=== PATIENT | female | born 1990 | race Two or more races ===

== ENCOUNTER 2020-09-14 12:15 | Inpatient (IN) | payer OTHER ==
[~2020-09-14] VITALS: Ht 162.6 cm; Wt 93.4 kg
[2020-10-05] MEDS ORDERED: FOLIC ACID20 MG PO (23:50)
== END 2020-10-08 13:04 | disposition home or self-care (01) | DRG 807 ==
LOC: LDR 10-04 12:15 → OB/GYN 10-05 23:44
PROVIDERS: ADMIT Obstetrics & Gynecology Maternal & Fetal Medicine; ATTEND Obstetrics & Gynecology Maternal & Fetal Medicine
PROC: 4A1HXFZ Monitoring of Products of Conception, Cardiac Rhythm, External Approach (ICD-10-PCS; 2020-10-05)
PROC: 10E0XZZ Delivery of Products of Conception, External Approach (ICD-10-PCS; principal; 2020-10-06)
PROC: 0KQM0ZZ Repair Perineum Muscle, Open Approach (ICD-10-PCS; 2020-10-06)
PROC: 0W8NXZZ Division of Female Perineum, External Approach (ICD-10-PCS; 2020-10-06)
PROC: 10907ZC Drainage of Amniotic Fluid, Therapeutic from Products of Conception, Via Natural or Artificial Opening (ICD-10-PCS; 2020-10-06)
DX: O48.0 Post-term pregnancy (principal); O70.1 Second degree perineal laceration during delivery; Z37.0 Single live birth; Z3A.40 40 weeks gestation of pregnancy

== ENCOUNTER 2020-09-28 09:37 | Outpatient (CLI) | payer OTHER | END 2020-09-28 10:13 | disposition home or self-care (01) | LOC: NST 09:37 | PROVIDERS: ATTEND Obstetrics & Gynecology | DX: Z34.83 Encounter for supervision of other normal pregnancy, third trimester (principal) ==

== ENCOUNTER 2020-10-02 10:33 | Outpatient (CLI) | payer OTHER | END 2020-10-02 11:09 | disposition home or self-care (01) | LOC: NST 10:33 | PROVIDERS: ATTEND Obstetrics & Gynecology Maternal & Fetal Medicine | DX: Z34.83 Encounter for supervision of other normal pregnancy, third trimester (principal) ==

== ENCOUNTER 2020-10-05 11:06 | Outpatient (CLI) | payer OTHER ==
[2020-10-05] MEDS ORDERED: FOLIC ACID20 MG PO (23:50)
== END 2020-10-05 11:44 | disposition home or self-care (01) ==
LOC: NST 11:06
PROVIDERS: ATTEND Obstetrics & Gynecology Maternal & Fetal Medicine
DX: Z34.83 Encounter for supervision of other normal pregnancy, third trimester (principal)

== ENCOUNTER 2025-01-30 13:45 | Inpatient (IN) | payer OTHER ==
[~2025-01-30] VITALS: Ht 160 cm; Wt 89.4 kg
[~2025-01-30 13:45] MED LIST: FOLIC ACID20 MG PO
[2025-02-08 23:37] VITALS: BP 125/73
[2025-02-08] MEDS ORDERED: RINGERS SOLUTION,LACTATED 1,000 ML IV SCH (23:45)
[2025-02-08] MEDS ORDERED: IRON236 MG PO (23:56)
[2025-02-09 00:32] LABS: BASO % 0.4 % (0.1-1.2); EOS # 0.12 (0.04-0.54); EOS % 1.1 % (0.7-7.0); LYMPH # 1.58 (1.18-3.74); LYMPH % 14.1 % (19.3-53.1); MEAN PLATELET VOLUME 10.90 fl (9.4-12.4); MONO # 0.72 (0.24-0.82); MONO % 6.4 % (4.7-12.5); NEUT # 8.66 (1.56-6.13); NEUT % 77.6 % (34.0-71.1); RED CELL DISTRIBUTION WIDTH 14.6 % (11.6-14.4)
[2025-02-09 00:40] LABS: INR < 0.93
[2025-02-09 00:45] LABS: ALT/SGPT 29.0 U/L (12-78); AST/SGOT 22.0 U/L (15-37); BILIRUBIN TOTAL 0.44 mg/dL (0.3-1.2); BUN CREA RATIO 17.0 (7.0-25.0); CREATININE SERUM 0.58 mg/dL (0.55-1.02); GFR 119.72; GLOBULINA 3.8 G/DL (2.4-3.5); GLUCOSE FASTING 89.0 mg/dL (65-100); OSMOLALITY SERUM 276.0 MOSM/KG (275-295)
[2025-02-09] MEDS ORDERED: OXYTOCIN 1,000 ML IV SCH (01:30)
[2025-02-09] MEDS ORDERED: CHLORHEXIDINE GLUCONATE 120 ML BOTTLE TOP SCH (01:30)
[2025-02-09 01:33] VITALS: BP 111/61
[2025-02-09 01:41] VITALS: BP 114/52
[2025-02-09 01:50] VITALS: BP 119/78
[2025-02-09 04:15] VITALS: BP 126/81
[2025-02-09 08:00] VITALS: BP 113/74
[2025-02-09 16:24] VITALS: BP 114/75
[2025-02-10 00:10] VITALS: BP 119/74
[2025-02-10 06:34] LABS: BASO % 0.8 % (0.1-1.2); EOS # 0.25 (0.04-0.54); EOS % 2.5 % (0.7-7.0); LYMPH # 2.41 (1.18-3.74); LYMPH % 24.0 % (19.3-53.1); MEAN PLATELET VOLUME 11.10 fl (9.4-12.4); MONO # 0.55 (0.24-0.82); MONO % 5.5 % (4.7-12.5); NEUT # 6.71 (1.56-6.13); NEUT % 66.6 % (34.0-71.1); RED CELL DISTRIBUTION WIDTH 15.0 % (11.6-14.4)
[2025-02-10 08:43] VITALS: BP 145/67
[2025-02-10 16:00] VITALS: BP 104/67
[2025-02-11 01:42] VITALS: BP 122/60; O2SAT 99
[2025-02-11 08:09] VITALS: BP 108/64
== END 2025-02-11 12:13 | disposition home or self-care (01) | DRG 807 ==
LOC: OB/GYN 02-08 23:48 → LDR 02-08 23:48 → OB/GYN 02-09 02:40
PROVIDERS: Obstetrics & Gynecology; ADMIT Obstetrics & Gynecology; ATTEND Obstetrics & Gynecology
PROC: 4A1HXCZ Monitoring of Products of Conception, Cardiac Rate, External Approach (ICD-10-PCS; 2025-02-08)
PROC: 10E0XZZ Delivery of Products of Conception, External Approach (ICD-10-PCS; principal; 2025-02-09)
PROC: 0KQM0ZZ Repair Perineum Muscle, Open Approach (ICD-10-PCS; 2025-02-09)
DX: O70.1 Second degree perineal laceration during delivery (principal); Z37.0 Single live birth; Z3A.40 40 weeks gestation of pregnancy